=== PATIENT | female | born 1970 | race Caucasian/White ===

== ENCOUNTER 2018-05-15 20:55 | Emergency (ER) | payer SELFPAY ==
[~2018-05-15] VITALS: Ht 152.4 cm; Wt 120.7 kg
[~2018-05-15 20:55] MED LIST: METFORMIN HCL500 MG PO
[2018-05-15 20:57] VITALS: Ht 152.4 cm; Wt 120.7 kg
[2018-05-16 00:46] VITALS: BP 141/75
== END 2018-05-16 00:46 | disposition home or self-care (01) ==
LOC: ED 20:55
DX: M54.40 Lumbago with sciatica, unspecified side (principal); I10 Essential (primary) hypertension; E11.9 Type 2 diabetes mellitus without complications